=== PATIENT | male | born 1945 | race Caucasian/White ===

== ENCOUNTER → 2017-01-21 | Outpatient (CLI) | payer MEDICARE, OTHER ==
[~2017-01-21] MED LIST: ASPI-496 PO
[2017-01-21 09:57] LABS: BLOOD UREA NITROGEN 26 mg/dL (7-18)
== END | disposition home or self-care (01) ==
LOC: STAR 08:10
PROVIDERS: ATTEND Orthopaedic Surgery
DX: Z01.818 Encounter for other preprocedural examination (principal); R94.31 Abnormal electrocardiogram [ECG] [EKG]; M17.11 Unilateral primary osteoarthritis, right knee
CPT/HCPCS: 36415; 80048; 81003; 85025; 87081; 93005

== ENCOUNTER 2017-02-01 05:58 | Inpatient (IN) | payer MEDICARE, OTHER ==
[~2017-02-01] VITALS: Ht 185.4 cm; Wt 79.0 kg
[2017-02-01] MEDS ORDERED: LACTATED RINGERS 1,000 ML IV SCH ×3 (06:50→06:55)
[2017-02-01] MEDS ORDERED: MIDAZOLAM 1 MG/ML, 2ML ONE (06:54)
[2017-02-01] MEDS ORDERED: FENTANYL PF 100 MCG/2ML ONE ×2 (06:54→10:10)
[2017-02-01] MEDS ORDERED: BUPIVACAINE/PF 0.25% ONE (07:01)
[2017-02-01] MEDS ORDERED: EPINEPHRINE 1 MG/ML, 1ML ONE (07:02)
[2017-02-01] MEDS ORDERED: ROPIvacaine/PF 0.2%, 20 ML ONE (07:02)
[2017-02-01] MEDS ORDERED: VANCOMYCIN 1,000 MG ONE (07:02)
[2017-02-01] MEDS ORDERED: TRANEXAMIC ACID 100 MG/ML, 10ML ONE (07:02)
[2017-02-01] MEDS ORDERED: KETOROLAC 60 MG/2 ML ONE (07:02)
[2017-02-01] MEDS ORDERED: SODIUM CHLORIDE 0.9% 50 ML ONE (07:03)
[2017-02-01] MEDS ORDERED: CEFAZOLIN 1,000 MG ONE (07:50)
[2017-02-01] MEDS ORDERED: PROPOFOL 10 MG/ML, 20ML ONE (07:50)
[2017-02-01] MEDS ORDERED: DEXAMETHASONE 4 MG/ML, 1ML ONE (07:50)
[2017-02-01] MEDS ORDERED: KETAMINE 10 MG/ML, 20ML ONE ×2 (07:50→09:17)
[2017-02-01] MEDS ORDERED: ONDANSETRON 2MG/ML, 2ML ONE (07:50)
[2017-02-01] MEDS ORDERED: LABETALOL 5MG/ML, 20ML IV PRN (08:30)
[2017-02-01] MEDS ORDERED: MEPERIDINE/PF 25MG/0.5ML IVPush PRN (08:30)
[2017-02-01] MEDS ORDERED: ONDANSETRON 2MG/ML, 2ML IVPush PRN (08:30)
[2017-02-01] MEDS ORDERED: hydrALAzine 20 MG/ML, 1ML IV PRN (08:30)
[2017-02-01] MEDS ORDERED: ACETAMINOPHEN 325 MG TABLET PO PRN (08:30)
[2017-02-01] MEDS ORDERED: HYDROmorphone 1 MG/ML, 1ML IV PRN ×2 (08:30→10:00)
[2017-02-01] MEDS ORDERED: PROMETHAZINE 25 MG/ML, 1ML IV PRN (08:30)
[2017-02-01] MEDS ORDERED: OXYcodone 5 MG/5 ML ORAL.SOL UDC PO PRN (08:30)
[2017-02-01] MEDS: D5%-0.45% NACL 1,000 ML IV SCH ×2 (09:54→20:59)
[2017-02-01] MEDS ORDERED: DIAZEPAM 5 MG TABLET PO PRN (10:00)
[2017-02-01] MEDS ORDERED: ONDANSETRON 2MG/ML, 2ML IV PRN (10:00)
[2017-02-01] MEDS ORDERED: SENNA/DOCUSATE TABLET PO PRN (10:00)
[2017-02-01] MEDS ORDERED: DIPHENHYDRAMINE 50 MG CAPSULE PO PRN (10:00)
[2017-02-01] MEDS ORDERED: ALUMINUM/MAG/SIMETHICONE 30 ML UDC PO PRN (10:00)
[2017-02-01] MEDS: HYDROcodone/APAP 10/325 MG TABLET PO SCH ×4 (10:00→22:11)
[2017-02-01] MEDS ORDERED: ACETAMINOPHEN 650 MG/20.3 ML UDC PO PRN (10:00)
[2017-02-01] MEDS ORDERED: PROMETHAZINE 25 MG/ML, 1ML IM PRN (10:00)
[2017-02-01] MEDS ORDERED: ZOLPIDEM 5MG TABLET PO PRN (10:00)
[2017-02-01] MEDS ORDERED: PROMETHAZINE 12.5 MG SUPP PR PRN (10:00)
[2017-02-01] MEDS ORDERED: OXYcodone IR 5MG TABLET PO PRN (10:00)
[2017-02-01] MEDS ORDERED: BISACODYL 10 MG SUPP PR PRN (10:00)
[2017-02-01] MEDS ORDERED: MAGNESIUM HYDROXIDE 8%, 30ML UDC PO PRN (10:00)
[2017-02-01] MEDS ORDERED: HYDROcodone/APAP 10/325 MG TABLET PO PRN (10:00)
[2017-02-01] MEDS ORDERED: ONDANSETRON 4 MG TABLET PO PRN (10:00)
[2017-02-01] MEDS ORDERED: OXYcodone 5 MG/5 ML ORAL.SOL UDC ONE (10:10)
[2017-02-01] MEDS ORDERED: ACETAMINOPHEN 325 MG/10.15 ML UDC ONE (10:10)
[2017-02-01] MEDS: FENTANYL PF 100 MCG/2ML IV PRN ×2 (10:14→10:24)
[2017-02-01] MEDS ORDERED: TRANEXAMIC ACID 1,000 MG in SODIUM CHLORIDE 0.9% 100 ML IVPB ONE (10:30)
[2017-02-01 12:30] VITALS: BP 146/81
[2017-02-01] MEDS: CEFAZOLIN PMX 2GM/50ML 50 ML IVPB SCH ×2 (15:54→23:07)
[2017-02-01] MEDS: ASPIRIN 81 MG TABLET EC PO SCH (18:08)
[2017-02-01 20:10] VITALS: BP 127/79
[2017-02-01] MEDS: PREGABALIN 75 MG CAPSULE PO SCH (21:27)
[2017-02-01] MEDS: DOCUSATE 100 MG CAPSULE PO SCH (21:27)
[2017-02-02 00:23] VITALS: BP 112/71
[2017-02-02] MEDS: D5%-0.45% NACL 1,000 ML IV SCH (00:55)
[2017-02-02] MEDS: HYDROcodone/APAP 10/325 MG TABLET PO SCH ×2 (02:26→05:27)
[2017-02-02] MEDS: CEFAZOLIN PMX 2GM/50ML 50 ML IVPB SCH (02:27)
[2017-02-02 04:35] VITALS: BP 99/56
[2017-02-02] MEDS: ASPIRIN 81 MG TABLET EC PO SCH (05:27)
[2017-02-02] MEDS ORDERED: DEXAMETHASONE 4 MG/ML, 1ML IVPush SCH (06:00)
[2017-02-02 08:01] VITALS: BP 117/70
[2017-02-02] MEDS ORDERED: MULTIVITAMINS/MINERALS TABLET PO SCH (09:00)
[2017-02-02] MEDS: DOCUSATE 100 MG CAPSULE PO SCH (09:07)
[2017-02-02] MEDS: PREGABALIN 75 MG CAPSULE PO SCH (09:07)
[2017-02-02] MEDS ORDERED: KETOROLAC 30 MG/1 ML IV SCH (10:00)
[2017-02-02] MEDS ORDERED: TAMSULOSIN 0.4 MG CAP.ER.24H PO SCH (10:30)
[2017-02-02 11:00] VITALS: BP 117/70
[2017-02-02] MEDS ORDERED: HYDR-3307 PO (11:21)
== END 2017-02-02 11:45 | disposition home or self-care (01) | DRG 470 ==
LOC: ORIP 05:58 → 4NOR 11:08 → DCLOUNGE 02-02 11:06
PROVIDERS: ADMIT Orthopaedic Surgery; ATTEND Orthopaedic Surgery
PROC: 0SRC0J9 Replacement of Right Knee Joint with Synthetic Substitute, Cemented, Open Approach (ICD-10-PCS; principal; 2017-02-01 08:00)
DX: M17.11 Unilateral primary osteoarthritis, right knee (principal); M21.161 Varus deformity, not elsewhere classified, right knee
CPT/HCPCS: 36415; 76000; 85014; 85018; C1713; J0171; J0690; J1100; J1885; J2250; J2405; J2704; J2795; J3010; J3370; J3490; C1776; J7120

== ENCOUNTER 2017-02-05 00:18 | Emergency (ER) | payer MEDICARE ==
[~2017-02-05] VITALS: Ht 182.9 cm; Wt 100.9 kg
[~2017-02-05 00:18] MED LIST changes: +HYDR-3307 PO
[2017-02-05 01:28] LABS: ASPARTATE AMINO TRANSFERASE 21 U/L (15-37); BLOOD UREA NITROGEN 21 mg/dL (7-18)
[2017-02-05 01:56] VITALS: BP 136/79
[2017-02-05] MEDS ORDERED: METHYLNALTREXONE 12 MG/0.6 ML SQ ONE (02:00)
== END 2017-02-05 02:57 | disposition left against medical advice (07) ==
LOC: ED 02:28
DX: K59.00 Constipation, unspecified (principal); Z87.891 Personal history of nicotine dependence
CPT/HCPCS: 36415; 74020; 80053; 85025; 96372

== ENCOUNTER 2020-03-08 14:21 | Inpatient (IN) | payer MEDICARE ==
[~2020-03-08] VITALS: Ht 182.9 cm; Wt 90.9 kg
[~2020-03-08 14:21] MED LIST changes: +HYDR-3246 PO; -HYDR-3307 PO
[2020-03-08 15:30] LABS: BASOPHILS # (AUTO) 0.02 x10^3/uL (0-0.1); BASOPHILS % (AUTO) 0 % (0-1); EOSINOPHILS # (AUTO) 0.05 x10^3/uL (0-0.4); EOSINOPHILS % (AUTO) 1 % (1-7); LYMPHOCYTES # (AUTO) 0.84 x10^3/uL (1-3.4); LYMPHOCYTES % (AUTO) 14 % (22-44); MD NO; MEAN CORPUSCULAR HEMOGLOBIN 32.1 pg (27.5-34.5); MEAN CORPUSCULAR HGB CONC 33.7 g/dL (33.2-36.2); MEAN PLATELET VOLUME 7.8 fL (7.4-10.4); MONOCYTES # (AUTO) 0.62 x10^3/uL (0.2-0.8); MONOCYTES % (AUTO) 10 % (2-9); NEUTROPHILS # (AUTO) 4.57 x10^3/uL (1.8-6.8); NEUTROPHILS % (AUTO) 75 % (42-75); PLATELET COUNT 170 x10^3/uL (130-400); RED BLOOD COUNT 5.23 x10^6/uL (4.38-5.82); RED CELL DISTRIBUTION WIDTH 13.6 % (9.4-14.8)
[2020-03-08] MEDS ORDERED: SODIUM CHLORIDE 0.9% 1,000ML IVBOLUS ONE ×3 (15:30→18:00)
[2020-03-08] MEDS ORDERED: SODIUM CHLORIDE FLUSH 10ML SYR IVF ONE (15:30)
[2020-03-08 15:35] LABS: ALANINE AMINOTRANSFERASE 33 U/L (12-78); ALBUMIN 3.3 g/dL (3.4-5.0); ANION GAP 9 mmol/L (5-15); CHLORIDE 98 mmol/L (98-107); CREATININE 2.07 mg/dL (0.7-1.3)
[2020-03-08 15:39] LABS: ALKALINE PHOSPHATASE 56 U/L (45-117); BILIRUBIN,TOTAL 0.7 mg/dL (0.2-1.0); TOTAL PROTEIN 7.9 g/dL (6.4-8.2); TROPONIN I 0.026 ng/mL (0.000-0.045)
--- NOTE | 2020-03-08 15:39 | NUR ---
PIV INITIATED, LABS DRAWN AND SENT, BC DRAWN. BOLUS HUNG. PT REQUIRING 4LNC FOR SAT >90%. ERMD AWARE.
--- NOTE | 2020-03-08 16:40 | NUR ---
ERMD IN TO UPDATE PT/ ON POC. PLAN TO ADMIT PT FOR PNA.
[2020-03-08] MEDS ORDERED: AZITHROMYCIN 500 MG in SODIUM CHLORIDE 0.9% 250 ML IV ONE (17:00)
[2020-03-08] MEDS ORDERED: DEXAMETHASONE 4 MG/ML, 1ML IVPush ONE (17:00)
[2020-03-08] MEDS ORDERED: DEXAMETHASONE 4 MG/ML, 5ML ONE (17:01)
--- NOTE | 2020-03-08 17:21 | NUR ---
abx now infusing. pt given water per request and md okay. pt and spouse deny further needs at this time. pt aware ua is needed. urinal provided.
[2020-03-08] MEDS ORDERED: ENALAPRILAT 1.25 MG/ML, 2ML IVPush PRN (18:00)
[2020-03-08] MEDS ORDERED: ONDANSETRON ODT 4 MG PO PRN (18:00)
[2020-03-08] MEDS ORDERED: LABETALOL 5MG/ML, 20ML IVPush PRN (18:00)
[2020-03-08] MEDS ORDERED: ACETAMINOPHEN 325 MG TABLET PO PRN (18:00)
[2020-03-08] MEDS ORDERED: ONDANSETRON 2MG/ML, 2ML IVPush PRN (18:00)
[2020-03-08] MEDS ORDERED: DOCUSATE 100 MG CAPSULE PO PRN (18:00)
[2020-03-08] MEDS ORDERED: SODIUM CHLORIDE 0.9% 1,000 ML IV SCH (18:00)
[2020-03-08] MEDS ORDERED: BISACODYL 10 MG SUPP PR PRN (18:00)
[2020-03-08] MEDS ORDERED: POLYETHYLENE GLYCOL 17 GM PACKET PO PRN (18:00)
[2020-03-08] MEDS ORDERED: LISI-167 PO (18:11)
[2020-03-08] MEDS ORDERED: CEFTRIAXONE PMX 2GM/50ML 50 ML ONE (18:53)
[2020-03-08] MEDS ORDERED: HEPARIN 5,000 UNITS/ML, 1ML ONE (18:53)
[2020-03-08] MEDS: HEPARIN 5,000 UNITS/ML, 1ML SQ SCH (19:01)
--- NOTE | 2020-03-08 19:12 | NUR ---
DELAY IN ABX AND ADDITIONAL FLUID BOLUS DUE TO PREVIOUS ABX AND BOLUS STILL INFUSING. IV POSITIONAL. PT EDUCATED ON KEEPING ARM STRAIGHT. PT READJUSTED IN BED. PT AND SPOUSE DENY FURTHER NEEDS AT THIS TIME.
--- NOTE | 2020-03-08 20:23 | NUR ---
report given to georgie calhoun. pt ready for transport.
[2020-03-08 20:40] VITALS: BP 104/64
[2020-03-08] MEDS: CEFTRIAXONE PMX 2GM/50ML 50 ML IV SCH (22:32)
[2020-03-08 23:47] LABS: MICROSCOPIC INDICATED
[2020-03-09 00:18] VITALS: BP 118/79
[2020-03-09] MEDS ORDERED: SODIUM CHLORIDE 0.9% 1,000 ML IV SCH ×2 (02:30→09:00)
[2020-03-09] MEDS: HEPARIN 5,000 UNITS/ML, 1ML SQ SCH ×3 (03:00→16:55)
[2020-03-09 06:11] LABS: ALANINE AMINOTRANSFERASE 29 U/L (12-78); ALBUMIN 2.6 g/dL (3.4-5.0); ANION GAP 8 mmol/L (5-15); CALCIUM 7.4 mg/dL (8.5-10.1); CHLORIDE 109 mmol/L (98-107); CREATININE 1.29 mg/dL (0.7-1.3)
[2020-03-09 06:14] LABS: ALKALINE PHOSPHATASE 46 U/L (45-117); BILIRUBIN,TOTAL 0.3 mg/dL (0.2-1.0); TOTAL PROTEIN 6.2 g/dL (6.4-8.2)
[2020-03-09 06:22] LABS: MEAN CORPUSCULAR HEMOGLOBIN 32.2 pg (27.5-34.5); MEAN CORPUSCULAR HGB CONC 33.3 g/dL (33.2-36.2); MEAN CORPUSCULAR VOLUME 96.7 fL (81-97); MEAN PLATELET VOLUME 7.7 fL (7.4-10.4); PLATELET COUNT 161 x10^3/uL (130-400); RED BLOOD COUNT 4.61 x10^6/uL (4.38-5.82); RED CELL DISTRIBUTION WIDTH 13.5 % (9.4-14.8)
[2020-03-09 06:52] VITALS: BP 118/79
[2020-03-09 06:58] LABS: BASOPHILS # (AUTO) 0.01 x10^3/uL (0-0.1); BASOPHILS % (AUTO) 0 % (0-1); EOSINOPHILS # (AUTO) 0.01 x10^3/uL (0-0.4); EOSINOPHILS % (AUTO) 0 % (1-7); LYMPHOCYTES # (AUTO) 0.55 x10^3/uL (1-3.4); LYMPHOCYTES % (AUTO) 21 % (22-44); MD SCAN; MONOCYTES # (AUTO) 0.28 x10^3/uL (0.2-0.8); MONOCYTES % (AUTO) 11 % (2-9); NEUTROPHILS # (AUTO) 1.72 x10^3/uL (1.8-6.8); NEUTROPHILS % (AUTO) 67 % (42-75)
[2020-03-09] MEDS: SENNA/DOCUSATE TABLET PO SCH (09:00)
[2020-03-09] MEDS ORDERED: DEXAMETHASONE 4 MG/ML, 1ML IVPush SCH (09:00)
[2020-03-09 09:43] LABS: D-DIMER 0.74 ug/mlFEU (0.00-0.52); INTERNATIONAL NORMALIZED RATIO 1.11 (0.93-1.1); PROTHROMBIN TIME 11.4 Seconds (9.6-11.5)
[2020-03-09 10:10] LABS: C-REACTIVE PROTEIN, QUANT 7.4 mg/dL (0.02-0.49)
[2020-03-09] MEDS ORDERED: FUROSEMIDE 40 MG/4 ML IV ONE ×2 (10:30→19:00)
[2020-03-09 12:17] LABS: O2 FLOW 12 L/min
[2020-03-09 13:08] VITALS: BP 128/74
[2020-03-09] MEDS: methylPREDNISolone SOD SUCC 125 MG/2 ML IVPush SCH ×2 (16:44→22:33)
[2020-03-09] MEDS ORDERED: AZITHROMYCIN 250 MG TABLET PO SCH (17:00)
[2020-03-09 18:28] VITALS: BP 114/70
[2020-03-09] MEDS ORDERED: OMNIPAQUE 350 MG/ML, 100ML BOTTLE ONE (22:00)
[2020-03-09] MEDS: THIAMINE 100MG TABLET PO SCH (22:33)
[2020-03-09] MEDS: ASCORBIC ACID 500 MG TABLET PO SCH (22:34)
[2020-03-09] MEDS: CEFTRIAXONE PMX 2GM/50ML 50 ML IV SCH (22:34)
[2020-03-09] MEDS: MELATONIN 5 MG TABLET PO SCH (22:34)
[2020-03-10] MEDS: HEPARIN 5,000 UNITS/ML, 1ML SQ SCH (02:28)
[2020-03-10 03:46] VITALS: BP 110/68
[2020-03-10] MEDS: methylPREDNISolone SOD SUCC 125 MG/2 ML IVPush SCH ×4 (04:03→22:14)
[2020-03-10 07:00] LABS: MEAN CORPUSCULAR HEMOGLOBIN 31.9 pg (27.5-34.5); MEAN CORPUSCULAR VOLUME 96.8 fL (81-97); MEAN PLATELET VOLUME 7.9 fL (7.4-10.4); PLATELET COUNT 195 x10^3/uL (130-400); RED BLOOD COUNT 4.77 x10^6/uL (4.38-5.82); RED CELL DISTRIBUTION WIDTH 13.5 % (9.4-14.8)
[2020-03-10 07:06] LABS: ANION GAP 8 mmol/L (5-15); CALCIUM 8.4 mg/dL (8.5-10.1); CHLORIDE 107 mmol/L (98-107); CREATININE 1.36 mg/dL (0.7-1.3)
[2020-03-10 07:13] LABS: BASOPHILS # (AUTO) 0.01 x10^3/uL (0-0.1); BASOPHILS % (AUTO) 0 % (0-1); EOSINOPHILS % (AUTO) 0 % (1-7); LYMPHOCYTES % (AUTO) 9 % (22-44); MD SCAN; MONOCYTES # (AUTO) 0.57 x10^3/uL (0.2-0.8); MONOCYTES % (AUTO) 8 % (2-9); NEUTROPHILS # (AUTO) 5.83 x10^3/uL (1.8-6.8); NEUTROPHILS % (AUTO) 83 % (42-75)
[2020-03-10 08:15] LABS: FIO2 100 %
[2020-03-10 08:17] VITALS: BP 108/71
[2020-03-10] MEDS ORDERED: ENOXAPARIN 40 MG/0.4 ML SQ SCH (09:30)
[2020-03-10] MEDS: PIPERACILLIN/TAZO/PMX 3.375GM 50 ML IV SCH ×3 (10:03→20:11)
[2020-03-10] MEDS: DOXYCYCLINE 100 MG in DEXTROSE 5% 250 ML IV SCH ×2 (10:03→12:30)
[2020-03-10] MEDS: SENNA/DOCUSATE TABLET PO SCH (10:10)
[2020-03-10] MEDS: THIAMINE 100MG TABLET PO SCH ×2 (10:11→19:53)
[2020-03-10] MEDS: ASCORBIC ACID 500 MG TABLET PO SCH ×3 (10:11→19:53)
[2020-03-10] MEDS: ZINC SULFATE 220 MG CAPSULE PO SCH (10:11)
[2020-03-10] MEDS: CHOLECALCIFEROL 1,000 UNIT TABLET PO SCH (10:11)
[2020-03-10 10:39] LABS: FIO2 100 %
[2020-03-10] MEDS ORDERED: FUROSEMIDE 40 MG/4 ML IV ONE (13:30)
[2020-03-10] MEDS ORDERED: REMDESIVIR 200 MG in SODIUM CHLORIDE 0.9% 250 ML IVPB ONE (16:00)
[2020-03-10] MEDS: ENOXAPARIN 100 MG/ML SQ SCH (16:19)
[2020-03-10] MEDS ORDERED: AZITHROMYCIN 500 MG TABLET PO SCH (17:00)
[2020-03-10 18:49] LABS: CLOSTRIDIUM DIFFICILE ANTIGEN NEGATIVE; CLOSTRIDIUM DIFFICILE TOXIN NEGATIVE (Negative)
[2020-03-10] MEDS: DOXYCYCLINE 100MG TABLET PO SCH (19:53)
[2020-03-10] MEDS: MELATONIN 5 MG TABLET PO SCH (19:53)
[2020-03-11 04:27] LABS: BASOPHILS # (AUTO) 0.03 x10^3/uL (0-0.1); BASOPHILS % (AUTO) 0 % (0-1); EOSINOPHILS # (AUTO) 0.03 x10^3/uL (0-0.4); EOSINOPHILS % (AUTO) 0 % (1-7); LYMPHOCYTES # (AUTO) 0.47 x10^3/uL (1-3.4); LYMPHOCYTES % (AUTO) 6 % (22-44); MD NO; MEAN CORPUSCULAR HGB CONC 33.3 g/dL (33.2-36.2); MEAN PLATELET VOLUME 7.7 fL (7.4-10.4); MONOCYTES # (AUTO) 0.57 x10^3/uL (0.2-0.8); MONOCYTES % (AUTO) 7 % (2-9); NEUTROPHILS # (AUTO) 6.65 x10^3/uL (1.8-6.8); NEUTROPHILS % (AUTO) 86 % (42-75); PLATELET COUNT 238 x10^3/uL (130-400); RED CELL DISTRIBUTION WIDTH 13.5 % (9.4-14.8)
[2020-03-11 04:35] LABS: D-DIMER 0.78 ug/mlFEU (0.00-0.52); INTERNATIONAL NORMALIZED RATIO 1.09 (0.93-1.1); PROTHROMBIN TIME 11.2 Seconds (9.6-11.5)
[2020-03-11 04:38] LABS: CHLORIDE 108 mmol/L (98-107)
[2020-03-11] MEDS: methylPREDNISolone SOD SUCC 125 MG/2 ML IVPush SCH ×4 (04:41→21:02)
[2020-03-11] MEDS: PIPERACILLIN/TAZO/PMX 3.375GM 50 ML IV SCH ×4 (04:41→20:53)
[2020-03-11 04:51] LABS: ALANINE AMINOTRANSFERASE 24 U/L (12-78); ALBUMIN 2.5 g/dL (3.4-5.0); ALKALINE PHOSPHATASE 46 U/L (45-117); ANION GAP 8 mmol/L (5-15); BILIRUBIN,TOTAL 0.5 mg/dL (0.2-1.0); CALCIUM 7.6 mg/dL (8.5-10.1); CREATININE 1.48 mg/dL (0.7-1.3); TOTAL PROTEIN 6.3 g/dL (6.4-8.2)
[2020-03-11 05:00] VITALS: BP 123/80
[2020-03-11] MEDS: PANTOPRAZOLE 40MG TABLET PO SCH (05:50)
[2020-03-11] MEDS: ENOXAPARIN 100 MG/ML SQ SCH ×2 (08:10→20:52)
[2020-03-11] MEDS: THIAMINE 100MG TABLET PO SCH ×2 (08:11→20:53)
[2020-03-11] MEDS: DOXYCYCLINE 100MG TABLET PO SCH ×2 (08:11→20:53)
[2020-03-11] MEDS: SENNA/DOCUSATE TABLET PO SCH (08:11)
[2020-03-11] MEDS: CHOLECALCIFEROL 1,000 UNIT TABLET PO SCH (08:11)
[2020-03-11] MEDS: ZINC SULFATE 220 MG CAPSULE PO SCH (08:11)
[2020-03-11] MEDS: ASCORBIC ACID 500 MG TABLET PO SCH ×3 (08:11→20:54)
[2020-03-11] MEDS ORDERED: PANTOPRAZOLE 40 MG IV IVPush SCH (09:00)
[2020-03-11] MEDS ORDERED: CHLORDIAZEPOXIDE 25 MG CAPSULE PO ONE (12:30)
[2020-03-11] MEDS ORDERED: AMIODARONE 150 MG in DEXTROSE 5% 100 ML IV ONE (12:30)
[2020-03-11] MEDS: AMIODARONE 450 MG in DEXTROSE 5% 241 ML IV PRN ×2 (12:42→22:05)
[2020-03-11] MEDS ORDERED: FILTER 0.22 MICRON IV PRN (13:00)
[2020-03-11] MEDS: REMDESIVIR 100 MG in SODIUM CHLORIDE 0.9% 250 ML IVPB SCH (17:28)
[2020-03-11] MEDS: MELATONIN 5 MG TABLET PO SCH (20:53)
[2020-03-11] MEDS ORDERED: CHLORDIAZEPOXIDE 25 MG CAPSULE PO SCH (21:00)
[2020-03-12] MEDS: methylPREDNISolone SOD SUCC 125 MG/2 ML IVPush SCH ×4 (03:48→21:27)
[2020-03-12] MEDS: PIPERACILLIN/TAZO/PMX 3.375GM 50 ML IV SCH ×4 (03:48→21:27)
[2020-03-12 05:00] VITALS: BP 111/75
[2020-03-12] MEDS: PANTOPRAZOLE 40MG TABLET PO SCH (05:25)
[2020-03-12] MEDS: SENNA/DOCUSATE TABLET PO SCH ×2 (08:10→09:00)
[2020-03-12] MEDS: ENOXAPARIN 100 MG/ML SQ SCH ×2 (08:10→19:36)
[2020-03-12] MEDS: ZINC SULFATE 220 MG CAPSULE PO SCH (08:11)
[2020-03-12] MEDS: CHOLECALCIFEROL 1,000 UNIT TABLET PO SCH (08:11)
[2020-03-12] MEDS: DOXYCYCLINE 100MG TABLET PO SCH ×2 (08:11→19:36)
[2020-03-12] MEDS: THIAMINE 100MG TABLET PO SCH ×2 (08:11→19:36)
[2020-03-12] MEDS: ASCORBIC ACID 500 MG TABLET PO SCH ×3 (08:11→19:36)
[2020-03-12] MEDS ORDERED: AMIODARONE 450 MG in DEXTROSE 5% 241 ML IV PRN (09:31)
[2020-03-12 09:44] LABS: ALANINE AMINOTRANSFERASE 35 U/L (12-78); ALBUMIN 2.8 g/dL (3.4-5.0); ANION GAP 8 mmol/L (5-15); CALCIUM 8.1 mg/dL (8.5-10.1); CHLORIDE 105 mmol/L (98-107)
[2020-03-12 09:46] LABS: ALKALINE PHOSPHATASE 52 U/L (45-117); BILIRUBIN,TOTAL 0.7 mg/dL (0.2-1.0); TOTAL PROTEIN 6.5 g/dL (6.4-8.2)
[2020-03-12] MEDS: REMDESIVIR 100 MG in SODIUM CHLORIDE 0.9% 250 ML IVPB SCH (17:54)
[2020-03-13] MEDS: PIPERACILLIN/TAZO/PMX 3.375GM 50 ML IV SCH ×2 (04:15→09:10)
[2020-03-13] MEDS: methylPREDNISolone SOD SUCC 125 MG/2 ML IVPush SCH ×4 (04:16→21:28)
[2020-03-13 04:48] LABS: INTERNATIONAL NORMALIZED RATIO 1.23 (0.93-1.1); PROTHROMBIN TIME 12.7 Seconds (9.6-11.5)
[2020-03-13 04:49] LABS: CHLORIDE 107 mmol/L (98-107)
[2020-03-13 04:55] LABS: ALANINE AMINOTRANSFERASE 36 U/L (12-78); ALBUMIN 2.4 g/dL (3.4-5.0); ALKALINE PHOSPHATASE 45 U/L (45-117); ANION GAP 5 mmol/L (5-15); BILIRUBIN,TOTAL 0.6 mg/dL (0.2-1.0); CALCIUM 7.5 mg/dL (8.5-10.1); CREATININE 1.39 mg/dL (0.7-1.3); TOTAL PROTEIN 5.8 g/dL (6.4-8.2)
[2020-03-13 04:56] VITALS: BP 119/83
[2020-03-13 05:11] LABS: FREE T4 (FREE THYROXINE) 0.99 ng/dL (0.76-1.46)
[2020-03-13] MEDS: PANTOPRAZOLE 40MG TABLET PO SCH (05:26)
[2020-03-13] MEDS: SENNA/DOCUSATE TABLET PO SCH (09:00)
[2020-03-13] MEDS: CHOLECALCIFEROL 1,000 UNIT TABLET PO SCH (09:00)
[2020-03-13] MEDS: TOCILIZUMAB 400 MG in SODIUM CHLORIDE 0.9% 80 ML IVPB SCH ×2 (09:01→20:05)
[2020-03-13] MEDS: ZINC SULFATE 220 MG CAPSULE PO SCH (09:08)
[2020-03-13] MEDS: DOXYCYCLINE 100MG TABLET PO SCH (09:08)
[2020-03-13] MEDS: ASCORBIC ACID 500 MG TABLET PO SCH ×3 (09:08→21:28)
[2020-03-13] MEDS: POTASSIUM CHLORIDE 20 MEQ TAB.ER.PRT PO SCH ×3 (09:08→17:38)
[2020-03-13] MEDS: THIAMINE 100MG TABLET PO SCH ×2 (09:08→21:28)
[2020-03-13] MEDS: ENOXAPARIN 100 MG/ML SQ SCH ×2 (09:29→20:06)
[2020-03-13] MEDS: REMDESIVIR 100 MG in SODIUM CHLORIDE 0.9% 250 ML IVPB SCH (17:39)
[2020-03-14] MEDS: methylPREDNISolone SOD SUCC 125 MG/2 ML IVPush SCH ×4 (04:31→23:26)
[2020-03-14] MEDS: PANTOPRAZOLE 40MG TABLET PO SCH (04:31)
[2020-03-14 04:33] LABS: ALBUMIN 2.5 g/dL (3.4-5.0); ANION GAP 6 mmol/L (5-15); CALCIUM 7.6 mg/dL (8.5-10.1); CHLORIDE 109 mmol/L (98-107)
[2020-03-14 04:34] LABS: BASOPHILS % (AUTO) 0 % (0-1); EOSINOPHILS # (AUTO) 0.11 x10^3/uL (0-0.4); EOSINOPHILS % (AUTO) 1 % (1-7); LYMPHOCYTES # (AUTO) 0.36 x10^3/uL (1-3.4); LYMPHOCYTES % (AUTO) 4 % (22-44); MD NO; MEAN CORPUSCULAR HEMOGLOBIN 31.8 pg (27.5-34.5); MEAN CORPUSCULAR HGB CONC 32.9 g/dL (33.2-36.2); MEAN CORPUSCULAR VOLUME 96.6 fL (81-97); MONOCYTES # (AUTO) 0.25 x10^3/uL (0.2-0.8); MONOCYTES % (AUTO) 3 % (2-9); NEUTROPHILS # (AUTO) 8.18 x10^3/uL (1.8-6.8); NEUTROPHILS % (AUTO) 92 % (42-75); PLATELET COUNT 290 x10^3/uL (130-400); RED BLOOD COUNT 4.96 x10^6/uL (4.38-5.82); RED CELL DISTRIBUTION WIDTH 13.7 % (9.4-14.8)
[2020-03-14 04:38] LABS: ALANINE AMINOTRANSFERASE 46 U/L (12-78); ALKALINE PHOSPHATASE 47 U/L (45-117); BILIRUBIN,TOTAL 0.5 mg/dL (0.2-1.0); CREATININE 1.41 mg/dL (0.7-1.3); TOTAL PROTEIN 5.8 g/dL (6.4-8.2)
[2020-03-14 05:01] VITALS: BP 129/93
[2020-03-14] MEDS: SENNA/DOCUSATE TABLET PO SCH (08:10)
[2020-03-14] MEDS: ZINC SULFATE 220 MG CAPSULE PO SCH (08:11)
[2020-03-14] MEDS: THIAMINE 100MG TABLET PO SCH ×2 (08:11→20:12)
[2020-03-14] MEDS: ASCORBIC ACID 500 MG TABLET PO SCH ×3 (08:11→20:12)
[2020-03-14] MEDS: ENOXAPARIN 100 MG/ML SQ SCH ×2 (08:11→20:12)
[2020-03-14] MEDS: CHOLECALCIFEROL 1,000 UNIT TABLET PO SCH (08:15)
[2020-03-14] MEDS: REMDESIVIR 100 MG in SODIUM CHLORIDE 0.9% 250 ML IVPB SCH (16:26)
[2020-03-15] MEDS: methylPREDNISolone SOD SUCC 125 MG/2 ML IVPush SCH ×4 (04:17→21:53)
[2020-03-15 04:41] LABS: INTERNATIONAL NORMALIZED RATIO 1.26 (0.93-1.1)
[2020-03-15 04:45] LABS: ALANINE AMINOTRANSFERASE 42 U/L (12-78); ALBUMIN 2.4 g/dL (3.4-5.0); ANION GAP 7 mmol/L (5-15); CALCIUM 7.6 mg/dL (8.5-10.1); CHLORIDE 109 mmol/L (98-107); CREATININE 1.09 mg/dL (0.7-1.3)
[2020-03-15 04:48] LABS: ALKALINE PHOSPHATASE 48 U/L (45-117); BILIRUBIN,TOTAL 0.6 mg/dL (0.2-1.0); TOTAL PROTEIN 5.6 g/dL (6.4-8.2)
[2020-03-15 05:00] VITALS: BP 145/101
[2020-03-15] MEDS: PANTOPRAZOLE 40MG TABLET PO SCH (05:07)
[2020-03-15] MEDS: ENOXAPARIN 100 MG/ML SQ SCH ×2 (07:25→19:20)
[2020-03-15] MEDS: SENNA/DOCUSATE TABLET PO SCH (07:25)
[2020-03-15] MEDS: THIAMINE 100MG TABLET PO SCH ×2 (07:57→19:20)
[2020-03-15] MEDS: ASCORBIC ACID 500 MG TABLET PO SCH ×3 (07:57→19:20)
[2020-03-15] MEDS: ZINC SULFATE 220 MG CAPSULE PO SCH (07:58)
[2020-03-15] MEDS ORDERED: FUROSEMIDE 40 MG TABLET PO ONE (08:00)
[2020-03-15] MEDS: CHOLECALCIFEROL 1,000 UNIT TABLET PO SCH (08:02)
[2020-03-15] MEDS: CARVEDILOL 3.125 MG TABLET PO SCH (09:47)
[2020-03-15] MEDS: AMIODARONE 200 MG TABLET PO SCH (09:47)
[2020-03-15] MEDS ORDERED: POTASSIUM CHLORIDE 20 MEQ TAB.ER.PRT PO ONE (10:00)
[2020-03-16] MEDS: methylPREDNISolone SOD SUCC 125 MG/2 ML IVPush SCH (04:02)
[2020-03-16 04:22] VITALS: BP 119/78
[2020-03-16] MEDS: PANTOPRAZOLE 40MG TABLET PO SCH (05:09)
[2020-03-16] MEDS: ENOXAPARIN 100 MG/ML SQ SCH ×2 (07:34→19:34)
[2020-03-16] MEDS: CARVEDILOL 3.125 MG TABLET PO SCH (07:56)
[2020-03-16] MEDS: SENNA/DOCUSATE TABLET PO SCH (07:57)
[2020-03-16] MEDS: THIAMINE 100MG TABLET PO SCH ×2 (07:57→19:33)
[2020-03-16] MEDS: CHOLECALCIFEROL 1,000 UNIT TABLET PO SCH (07:57)
[2020-03-16] MEDS: ZINC SULFATE 220 MG CAPSULE PO SCH (07:57)
[2020-03-16] MEDS: ASCORBIC ACID 500 MG TABLET PO SCH ×3 (07:57→19:33)
[2020-03-16] MEDS: AMIODARONE 200 MG TABLET PO SCH (08:00)
[2020-03-17] MEDS: PANTOPRAZOLE 40MG TABLET PO SCH (04:23)
[2020-03-17 04:28] LABS: MEAN CORPUSCULAR HEMOGLOBIN 31.9 pg (27.5-34.5); MEAN CORPUSCULAR HGB CONC 32.7 g/dL (33.2-36.2); MEAN CORPUSCULAR VOLUME 97.5 fL (81-97); MEAN PLATELET VOLUME 8.1 fL (7.4-10.4); PLATELET COUNT 273 x10^3/uL (130-400); RED BLOOD COUNT 4.62 x10^6/uL (4.38-5.82); RED CELL DISTRIBUTION WIDTH 13.8 % (9.4-14.8)
[2020-03-17 04:37] LABS: CALCIUM 7.5 mg/dL (8.5-10.1); CHLORIDE 109 mmol/L (98-107)
[2020-03-17 04:38] LABS: INTERNATIONAL NORMALIZED RATIO 1.23 (0.93-1.1); PROTHROMBIN TIME 12.7 Seconds (9.6-11.5)
[2020-03-17 04:41] LABS: ALANINE AMINOTRANSFERASE 35 U/L (12-78); ALBUMIN 2.3 g/dL (3.4-5.0); ALKALINE PHOSPHATASE 43 U/L (45-117); ANION GAP 10 mmol/L (5-15); BILIRUBIN,TOTAL 0.6 mg/dL (0.2-1.0); CREATININE 1.13 mg/dL (0.7-1.3)
[2020-03-17 05:00] VITALS: BP 121/81
[2020-03-17 05:09] LABS: BASOPHILS # (AUTO) 0.02 x10^3/uL (0-0.1); BASOPHILS % (AUTO) 0 % (0-1); EOSINOPHILS # (AUTO) 0.02 x10^3/uL (0-0.4); EOSINOPHILS % (AUTO) 0 % (1-7); LYMPHOCYTES # (AUTO) 1.02 x10^3/uL (1-3.4); LYMPHOCYTES % (AUTO) 10 % (22-44); MD SCAN; MONOCYTES # (AUTO) 0.03 x10^3/uL (0.2-0.8); MONOCYTES % (AUTO) 0 % (2-9); NEUTROPHILS # (AUTO) 9.59 x10^3/uL (1.8-6.8); NEUTROPHILS % (AUTO) 90 % (42-75)
[2020-03-17] MEDS: ENOXAPARIN 100 MG/ML SQ SCH (08:01)
[2020-03-17] MEDS: CHOLECALCIFEROL 1,000 UNIT TABLET PO SCH (08:02)
[2020-03-17] MEDS: ZINC SULFATE 220 MG CAPSULE PO SCH (08:03)
[2020-03-17] MEDS: THIAMINE 100MG TABLET PO SCH ×2 (08:03→20:08)
[2020-03-17] MEDS: CARVEDILOL 3.125 MG TABLET PO SCH (08:03)
[2020-03-17] MEDS: ASCORBIC ACID 500 MG TABLET PO SCH ×3 (08:03→20:08)
[2020-03-17] MEDS: AMIODARONE 200 MG TABLET PO SCH (08:03)
[2020-03-17] MEDS: SENNA/DOCUSATE TABLET PO SCH (08:03)
[2020-03-17] MEDS ORDERED: FENTANYL PF 100 MCG/2ML ONE (15:00)
[2020-03-17] MEDS ORDERED: FENTANYL PF 100 MCG/2ML IVPush PRN ×2 (15:00→23:00)
[2020-03-17] MEDS ORDERED: FENTANYL PF 100 MCG/2ML IV ONE (17:30)
[2020-03-17] MEDS: FENTANYL PF 100 MCG/2ML IVPush PRN (20:00)
[2020-03-17] MEDS ORDERED: OMNIPAQUE 350 MG/ML, 100ML BOTTLE ONE (23:31)
[2020-03-17 23:44] VITALS: BP 60/42
[2020-03-18] VITALS (15 sets, daily range): BP systolic 71–114; BP diastolic 49–77
[2020-03-18] MEDS ORDERED: SODIUM CHLORIDE 0.9% 500 ML IV SCH ×2 (00:30→05:00)
[2020-03-18] MEDS: NOREPINEPHRINE 8 MG in SODIUM CHLORIDE 0.9% 242 ML IV PRN ×3 (00:43→08:25)
[2020-03-18] MEDS: FENTANYL PF 100 MCG/2ML IVPush PRN (04:09)
[2020-03-18] MEDS ORDERED: SODIUM CHLORIDE 0.9% 500 ML IV ONE (04:30)
[2020-03-18] MEDS ORDERED: AMIODARONE 150 MG in DEXTROSE 5% 100 ML IV ONE ×2 (04:30→07:30)
[2020-03-18] MEDS: PANTOPRAZOLE 40MG TABLET PO SCH (05:16)
[2020-03-18] MEDS ORDERED: NALOXONE 0.4 MG/ML, 1ML ONE (06:36)
[2020-03-18] MEDS ORDERED: EPINEPHRINE 1 MG/ML, 1ML ONE ×2 (06:37→06:41)
[2020-03-18] MEDS ORDERED: ALBUMIN HUMAN 25% 200 ML ONE ×2 (07:00→13:02)
[2020-03-18] MEDS ORDERED: ALBUMIN HUMAN 25% 100 ML IV ONE ×3 (07:00→13:30)
[2020-03-18] MEDS ORDERED: EPINEPHRINE 5 MG in SODIUM CHLORIDE 0.9% 245 ML IV PRN (07:07)
[2020-03-18] MEDS ORDERED: PROPOFOL 100 ML IV PRN ×2 (07:07→08:00)
[2020-03-18] MEDS ORDERED: NOREPINEPHRINE 8 MG in SODIUM CHLORIDE 0.9% 242 ML IV PRN (07:07)
[2020-03-18 07:16] LABS: MEAN CORPUSCULAR HEMOGLOBIN 31.2 pg (27.5-34.5); MEAN CORPUSCULAR VOLUME 97.6 fL (81-97); MEAN PLATELET VOLUME 8.1 fL (7.4-10.4); PLATELET COUNT 238 x10^3/uL (130-400); RED BLOOD COUNT 3.27 x10^6/uL (4.38-5.82); RED CELL DISTRIBUTION WIDTH 14.8 % (9.4-14.8)
[2020-03-18 07:25] LABS: ALANINE AMINOTRANSFERASE 583 U/L (12-78); ALBUMIN 1.7 g/dL (3.4-5.0); ANION GAP 17 mmol/L (5-15); CALCIUM 6.6 mg/dL (8.5-10.1); CHLORIDE 107 mmol/L (98-107)
[2020-03-18 07:26] LABS: MD YES
[2020-03-18 07:27] LABS: ALKALINE PHOSPHATASE 34 U/L (45-117); BILIRUBIN,TOTAL 0.9 mg/dL (0.2-1.0); TOTAL PROTEIN 3.6 g/dL (6.4-8.2)
[2020-03-18 07:28] LABS: TROPONIN I 0.099 ng/mL (0.000-0.045)
[2020-03-18 07:29] LABS: <PLATELET ESTIMATE> ADEQUATE; <PLT MORPHOLOGY> NORMAL PLT MORPH; <RBC MORPHOLOGY> NORMAL; BAND#(MANUAL) 3.04 x10^3/uL; BANDS%(MANUAL) 7 % (0-7); LYMPH#(MANUAL) 3.04 x10^3/uL (1-3.4); LYMPHS% (MANUAL) 7 % (22-44); METAMYELOCYTES% (MANUAL) 3 % (0-1); MONOS#(MANUAL) 0.43 x10^3/uL (0.3-2.7); MONOS% (MANUAL) 1 % (2-9); MYELOCYTES% (MANUAL) 3 % (0-0); SEG#(MANUAL) 34.29 x10^3/uL (1.8-6.8); SEGS% (MANUAL) 79 % (42-75)
[2020-03-18] MEDS ORDERED: SENNA 176 MG/5 ML ORAL SOL NG PRN (07:30)
[2020-03-18] MEDS ORDERED: PHARMACY MAY ADJ FOR RENAL FX MC SCH (07:30)
[2020-03-18] MEDS ORDERED: DEXTROSE 4 GM TAB.CHEW PO PRN (07:30)
[2020-03-18] MEDS ORDERED: LIDOCAINE-MPF 1%, 2ML ENDO PRN (07:30)
[2020-03-18] MEDS ORDERED: FENTANYL PF 100 MCG/2ML IVPush PRN (07:30)
[2020-03-18] MEDS ORDERED: LACTULOSE 20 GM/30 ML UDC NG PRN (07:30)
[2020-03-18] MEDS ORDERED: GLUCAGON 1 MG IM PRN (07:30)
[2020-03-18] MEDS ORDERED: BISACODYL 10 MG SUPP PR PRN (07:30)
[2020-03-18] MEDS ORDERED: DEXTROSE 50%, 50ML SYRINGE IVPush PRN (07:30)
[2020-03-18] MEDS ORDERED: SENNA/DOCUSATE TABLET NG PRN (07:30)
[2020-03-18] MEDS ORDERED: SODIUM BICARB 8.4%, 50ML SYRINGE ONE ×3 (07:35→18:30)
[2020-03-18] MEDS ORDERED: SUCCINYLCHOLINE 20 MG/ML, 10ML ONE (07:35)
[2020-03-18] MEDS ORDERED: CODE BLUE RESPONSE XX ONE (07:35)
[2020-03-18] MEDS ORDERED: ETOMIDATE 20 MG/10 ML ONE (07:35)
[2020-03-18 08:06] LABS: INTERNATIONAL NORMALIZED RATIO 1.77 (0.93-1.1); PROTHROMBIN TIME 18.3 Seconds (9.6-11.5)
[2020-03-18 08:07] LABS: TRIGLYCERIDES 173 mg/dL (50-200)
[2020-03-18] MEDS: SODIUM BICARBONATE 8.4% 100 MEQ in DEXTROSE 5% 1,000 ML IV SCH ×2 (08:07→18:42)
[2020-03-18 08:10] LABS: MEAN CORPUSCULAR HEMOGLOBIN 31.3 pg (27.5-34.5); MEAN CORPUSCULAR HGB CONC 32.1 g/dL (33.2-36.2); MEAN CORPUSCULAR VOLUME 97.5 fL (81-97); MEAN PLATELET VOLUME 8.1 fL (7.4-10.4); PLATELET COUNT 222 x10^3/uL (130-400); RED BLOOD COUNT 2.78 x10^6/uL (4.38-5.82); RED CELL DISTRIBUTION WIDTH 14.9 % (9.4-14.8)
[2020-03-18 08:11] LABS: TROPONIN I 0.102 ng/mL (0.000-0.045)
[2020-03-18] MEDS ORDERED: NOREPINEPHRINE 1 MG/ML, 4ML ONE (08:20)
[2020-03-18 08:22] LABS: MD YES
[2020-03-18 08:23] LABS: BAND#(MANUAL) 4.31 x10^3/uL; BANDS%(MANUAL) 7 % (0-7); LYMPH#(MANUAL) 3.08 x10^3/uL (1-3.4); LYMPHS% (MANUAL) 5 % (22-44); METAMYELOCYTES# (MANUAL) 2.46 x10^3/uL (0-0); METAMYELOCYTES% (MANUAL) 4 % (0-1); MONOS#(MANUAL) 1.85 x10^3/uL (0.3-2.7); MONOS% (MANUAL) 3 % (2-9); MYELOCYTES# (MANUAL) 1.23 x10^3/uL (0-0); MYELOCYTES% (MANUAL) 2 % (0-0); SEG#(MANUAL) 48.66 x10^3/uL (1.8-6.8); SEGS% (MANUAL) 79 % (42-75)
[2020-03-18 08:24] LABS: <PLATELET ESTIMATE> ADEQUATE; <PLT MORPHOLOGY> NORMAL PLT MORPH; ECHINOCYTES 1+; OVALOCYTES 1+
[2020-03-18] MEDS ORDERED: VANCOMYCIN PER PHARMACY MC PRN (09:00)
[2020-03-18] MEDS ORDERED: SODIUM CHLORIDE FLUSH 10ML SYR IVF SCH ×3 (09:00→21:00)
[2020-03-18] MEDS ORDERED: NOREPINEPHRINE 32 MG in SODIUM CHLORIDE 0.9% 218 ML IV PRN (09:30)
[2020-03-18] MEDS ORDERED: PHARMACOKINETIC MONITORING MC PRN (09:30)
[2020-03-18] MEDS ORDERED: VANCOMYCIN 1,800 MG in SODIUM CHLORIDE 0.9% 250 ML IV SCH (10:00)
[2020-03-18] MEDS: PIPERACILLIN/TAZO/PMX 3.375GM 50 ML IV SCH ×2 (10:45→16:30)
[2020-03-18] MEDS: SENNA/DOCUSATE TABLET PO SCH (10:47)
[2020-03-18] MEDS: AMIODARONE 200 MG TABLET PO SCH (10:49)
[2020-03-18] MEDS: CHOLECALCIFEROL 1,000 UNIT TABLET PO SCH (10:55)
[2020-03-18] MEDS: ZINC SULFATE 220 MG CAPSULE PO SCH (10:55)
[2020-03-18] MEDS: ASCORBIC ACID 500 MG TABLET PO SCH ×2 (10:55→16:30)
[2020-03-18] MEDS: THIAMINE 100MG TABLET PO SCH (10:55)
[2020-03-18 13:00] LABS: ALBUMIN 2.6 g/dL (3.4-5.0); ANION GAP 24 mmol/L (5-15); CALCIUM 6.4 mg/dL (8.5-10.1); CHLORIDE 107 mmol/L (98-107); CREATININE 3.04 mg/dL (0.7-1.3)
[2020-03-18] MEDS ORDERED: ALBUMIN HUMAN 25% 100 ML IV STA (13:04)
[2020-03-18 13:05] LABS: ALKALINE PHOSPHATASE 30 U/L (45-117); BILIRUBIN,TOTAL 1.9 mg/dL (0.2-1.0)
[2020-03-18 13:12] LABS: ALANINE AMINOTRANSFERASE 2856 U/L (12-78)
--- NOTE | 2020-03-18 13:25 | NUR ---
TF Recommendations: Vital HP ON propofol: 60 ml/hr OFF propofol: 65 ml/hr
[2020-03-18] MEDS ORDERED: PROTAMINE SULFATE 50 MG in SODIUM CHLORIDE 0.9% 50 ML IV ONE (13:30)
[2020-03-18] MEDS: EPINEPHRINE 5 MG in SODIUM CHLORIDE 0.9% 245 ML IV PRN ×2 (15:24→18:32)
[2020-03-18] MEDS: PHENYLEPHRINE 50 MG in SODIUM CHLORIDE 0.9% 245 ML IV PRN ×2 (15:26→18:39)
[2020-03-18] MEDS ORDERED: CALCIUM CHLORIDE 27.2 MEQ in SODIUM CHLORIDE 0.9% 100 ML IV ONE ×2 (15:30→18:30)
[2020-03-18] MEDS ORDERED: SODIUM BICARBONATE 8.4% 150 MEQ in STERILE WATER 1,000 ML IV SCH (15:37)
[2020-03-18] MEDS ORDERED: EPINEPHRINE SYRINGE 0.1 MG/ML, 10ML ONE (16:08)
[2020-03-18 18:14] LABS: MEAN CORPUSCULAR HEMOGLOBIN 31.1 pg (27.5-34.5); MEAN CORPUSCULAR HGB CONC 32.8 g/dL (33.2-36.2); RED BLOOD COUNT 2.97 x10^6/uL (4.38-5.82); RED CELL DISTRIBUTION WIDTH 15.4 % (9.4-14.8)
[2020-03-18] MEDS ORDERED: VASOPRESSIN 20 UNIT in SODIUM CHLORIDE 0.9% 99 ML IV PRN (18:30)
[2020-03-18 18:31] LABS: MEAN PLATELET VOLUME 8.6 fL (7.4-10.4)
[2020-03-18 18:32] LABS: ANION GAP 29 mmol/L (5-15); CHLORIDE 106 mmol/L (98-107)
[2020-03-18 18:33] LABS: PLATELET COUNT 130 x10^3/uL (130-400)
[2020-03-18 18:34] LABS: MD YES
[2020-03-18 18:37] LABS: BAND#(MANUAL) 3.44 x10^3/uL; BANDS%(MANUAL) 9 % (0-7); LYMPH#(MANUAL) 0.38 x10^3/uL (1-3.4); LYMPHS% (MANUAL) 1 % (22-44); METAMYELOCYTES# (MANUAL) 0.38 x10^3/uL (0-0); METAMYELOCYTES% (MANUAL) 1 % (0-1); MONOS#(MANUAL) 1.15 x10^3/uL (0.3-2.7); MONOS% (MANUAL) 3 % (2-9); MYELOCYTES# (MANUAL) 0.38 x10^3/uL (0-0); MYELOCYTES% (MANUAL) 1 % (0-0); SEG#(MANUAL) 32.47 x10^3/uL (1.8-6.8); SEGS% (MANUAL) 85 % (42-75)
[2020-03-18 18:40] LABS: TROPONIN I 0.827 ng/mL (0.000-0.045)
[2020-03-18 18:41] LABS: ANISOCYTOSIS 1+; CRENATED 1+; ECHINOCYTES 1+; OVALOCYTES 1+
[2020-03-18 18:42] LABS: <PLATELET ESTIMATE> ADEQUATE; LARGE PLATELETS 1+; TOXIC GRAN 1+
[2020-03-18] MEDS ORDERED: morphine SULFATE 10 MG/ML, 1ML ONE (18:49)
[2020-03-18] MEDS ORDERED: LORazepam 2 MG/ML, 1ML ONE (18:53)
[2020-03-18] MEDS ORDERED: LORazepam 2 MG/ML, 1ML IVPush PRN (19:00)
[2020-03-18] MEDS ORDERED: LORazepam 2 MG/ML, 1ML IV PRN (19:00)
[2020-03-18] MEDS ORDERED: ATROPINE OPHTH SOLN 1%, 5ML PO PRN ×2 (19:00)
[2020-03-18] MEDS ORDERED: MORPHINE SULFATE 4 MG/ML, 1ML IV PRN (19:00)
[2020-03-18] MEDS ORDERED: MORPHINE SULFATE 4 MG/ML, 1ML IVPush PRN (19:00)
[2020-03-18] MEDS ORDERED: LORazepam 2 MG/ML, 1ML IV ONE ×2 (19:00)
[2020-03-18] MEDS ORDERED: MORPHINE SULFATE 4 MG/ML, 1ML IV ONE ×2 (19:00)
[2020-03-18] MEDS ORDERED: MORPHINE 30MG/30ML PCA.SYR IV SCH (19:00)
== END 2020-03-18 23:54 | disposition expired | DRG 208 ==
LOC: ED 18:43 → EDIP 18:58 → 3N 19:38 → 4EST 03-10 01:09 → ICU 03-10 08:39
PROVIDERS: ADMIT Emergency Medicine; ATTEND Internal Medicine
PROC: 5A09557 Assistance with Respiratory Ventilation, Greater than 96 Consecutive Hours, Continuous Positive Airway Pressure (ICD-10-PCS; 2020-03-10)
PROC: XW033E5 Introduction of Remdesivir Anti-infective into Peripheral Vein, Percutaneous Approach, New Technology Group 5 (ICD-10-PCS; 2020-03-10)
PROC: XW033E5 Introduction of Remdesivir Anti-infective into Peripheral Vein, Percutaneous Approach, New Technology Group 5 (ICD-10-PCS; 2020-03-11)
PROC: XW033E5 Introduction of Remdesivir Anti-infective into Peripheral Vein, Percutaneous Approach, New Technology Group 5 (ICD-10-PCS; 2020-03-12)
PROC: XW033E5 Introduction of Remdesivir Anti-infective into Peripheral Vein, Percutaneous Approach, New Technology Group 5 (ICD-10-PCS; 2020-03-13)
PROC: XW033E5 Introduction of Remdesivir Anti-infective into Peripheral Vein, Percutaneous Approach, New Technology Group 5 (ICD-10-PCS; 2020-03-14)
PROC: 30233N1 Transfusion of Nonautologous Red Blood Cells into Peripheral Vein, Percutaneous Approach (ICD-10-PCS; 2020-03-17)
PROC: 5A1935Z Respiratory Ventilation, Less than 24 Consecutive Hours (ICD-10-PCS; principal; 2020-03-18)
PROC: 0BH17EZ Insertion of Endotracheal Airway into Trachea, Via Natural or Artificial Opening (ICD-10-PCS; 2020-03-18)
PROC: 30233K1 Transfusion of Nonautologous Frozen Plasma into Peripheral Vein, Percutaneous Approach (ICD-10-PCS; 2020-03-18)
PROC: 03HY32Z Insertion of Monitoring Device into Upper Artery, Percutaneous Approach (ICD-10-PCS; 2020-03-18)
PROC: 06HY33Z Insertion of Infusion Device into Lower Vein, Percutaneous Approach (ICD-10-PCS; 2020-03-18)
PROC: B54BZZA Ultrasonography of Right Lower Extremity Veins, Guidance (ICD-10-PCS; 2020-03-18)
DX: U07.1 COVID-19 (principal); J12.89 Other viral pneumonia; J96.01 Acute respiratory failure with hypoxia; N17.0 Acute kidney failure with tubular necrosis; K66.1 Hemoperitoneum; D68.69 Other thrombophilia; E87.2 Acidosis; I42.9 Cardiomyopathy, unspecified; I48.19 Other persistent atrial fibrillation; I50.20 Unspecified systolic (congestive) heart failure; N39.0 Urinary tract infection, site not specified; Z99.11 Dependence on respirator [ventilator] status; D72.810 Lymphocytopenia; E11.9 Type 2 diabetes mellitus without complications; E86.1 Hypovolemia; E87.6 Hypokalemia; E88.09 Other disorders of plasma-protein metabolism, not elsewhere classified; I11.0 Hypertensive heart disease with heart failure; I46.9 Cardiac arrest, cause unspecified; I70.0 Atherosclerosis of aorta; I71.2 Thoracic aortic aneurysm, without rupture; I71.4 Abdominal aortic aneurysm, without rupture; R57.8 Other shock; Z51.5 Encounter for palliative care; D72.819 Decreased white blood cell count, unspecified; R74.0 Nonspecific elevation of levels of transaminase and lactic acid dehydrogenase [LDH]; R79.82 Elevated C-reactive protein (CRP); Z79.899 Other long term (current) drug therapy; Z85.828 Personal history of other malignant neoplasm of skin; Z87.891 Personal history of nicotine dependence; Z79.84 Long term (current) use of oral hypoglycemic drugs
CPT/HCPCS: 36415; 36600; 70450; 71045; 71275; 74018; 74174; 74176; 76700; 76770; 80048; 80053; 81001; 82330; 82533; 82728; 82803; 83036; 83605; 83615; 83735; 83880; 84100; 84145; 84439; 84443; 84478; 84484; 85014; 85018; 85025; 85379; 85384; 85610; 86140; 86850; 86900; 86923; 87040; 87070; 87081; 87086; 87205; 87324; 87635; 93005; 93306; 94002; 94660; 96361; 96374; 99291; G0378; J0171; J0456; J0696; J1100; J1644; J1650; J1940; J2405; J2543; J2704; J2720; J3010; J3262; J3370; J7060; J7070; P9047; Q9967; J0282; J0330; J2060; J2270; J2370; J2930; J7030; J7040; J7050; J7512; P9016; P9017